=== PATIENT | male | born 1980 | race African-American/Black ===

== ENCOUNTER 2017-07-18 03:01 | Emergency (ER) | payer SELFPAY ==
[2017-07-18] MEDS ORDERED: SODIUM CHLORIDE 0.9% 1,000 ML IV ONE (03:53)
[2017-07-18] MEDS ORDERED: TETANUS, DIPHTHERIA, PERTUSSIS VAC/PF 0.5ML (>7YR OLD) IM ONE (04:00)
[2017-07-18] MEDS ORDERED: HALOPERIDOL LACTATE 5MG/ML VIAL IM ONE (04:00)
[2017-07-18 04:49] LABS: BASOPHILS % 0.8 % (0.0-2.0); EOSINOPHILS % 1.5 % (0.0-5.0); HEMOGLOBIN. 16.4 g/dL (14.0-18.0); LYMPHOCYTES % 15.4 % (20.0-50.0); MEAN CORPUSCULAR HEMOGLOBIN 29.3 pg (28.0-32.0); MEAN CORPUSCULAR VOLUME 87.5 fL (80.0-94.0); MEAN PLATELET VOLUME 9.8 fl (7.4-10.4); MONOCYTES % 7.3 % (2.0-8.0); PLATELET 212 x1000/uL (130-400); RED BLOOD CELL COUNT 5.59 mill/uL (4.7-6.1); RED CELL DISTRIBUTION WIDTH 12.9 % (11.6-14.6)
[2017-07-18 04:52] LABS: CARBON DIOXIDE 30 mEq/L (21-32); CHLORIDE 104 mEq/L (98-107)
[2017-07-18 04:56] LABS: PARTIAL THROMBOPLASTIN TIME 28.5 sec (23.4-31.0); PROTHROMBIN TIME 10.7 sec (9.4-11.6)
[2017-07-18 07:08] VITALS: BP 156/69
== END 2017-07-18 07:09 | disposition home or self-care (01) ==
LOC: ER 03:01
DX: S00.11XA Contusion of right eyelid and periocular area, initial encounter (principal); F10.129 Alcohol abuse with intoxication, unspecified; F17.200 Nicotine dependence, unspecified, uncomplicated; F12.10 Cannabis abuse, uncomplicated; Y90.3 Blood alcohol level of 60-79 mg/100 ml; Y08.89XA Assault by other specified means, initial encounter; Y93.89 Activity, other specified; Y92.89 Other specified places as the place of occurrence of the external cause; Y99.8 Other external cause status
CPT/HCPCS: 36415; 70450; 70486; 71010; 72170; 80053; 83690; 85025; 85610; 85730; 86850; 86900; 86901; 96360; 96361; 99285; G0482; J7030; Z7610

== ENCOUNTER 2017-07-19 02:39 | Emergency (ER) | payer SELFPAY ==
[~2017-07-19] VITALS: Ht 180.3 cm; Wt 78.0 kg
[2017-07-19 02:45] VITALS: BP 147/100
[2017-07-19] MEDS ORDERED: BACITRACIN ZINC OINT UDPKT TOP ONE (03:15)
[2017-07-19] MEDS ORDERED: ACETAMINOPHEN 325MG TABLET PO ONE (03:15)
[2017-07-19] MEDS ORDERED: TETANUS, DIPHTHERIA, PERTUSSIS VAC/PF 0.5ML (>7YR OLD) IM ONE (04:00)
== END 2017-07-19 04:08 | disposition home or self-care (01) ==
LOC: ER 02:39
DX: Z48.00 Encounter for change or removal of nonsurgical wound dressing (principal); F12.10 Cannabis abuse, uncomplicated; F11.10 Opioid abuse, uncomplicated
CPT/HCPCS: 90471; 90715; 99283